=== PATIENT | female | born 1960 | race Caucasian/White ===

== ENCOUNTER → 2021-07-29 | Outpatient (CLI) | payer OTHER ==
[~2021-07-29] MED LIST: ATORVASTATIN CA10 MG PO; BAYER CHEWABLE81 MG PO; BENADRYL ALLERG25 MG PO; CALCIUM500 M1 PO; CITALOPRAM HBR40 MG PO; CLARITIN 10MG T10 MG PO; CLARITIN10 MG PO; CLONAZEPAM1 MG PO; COREG 12.5MG12.5 MG PO; CYCLOBENZAPRINE10 MG PO; DEMADEX 20 MG T20 MG PO; GABAPENTIN800 MG PO; HAIR SKIN NAIL1 EACH PO; HYDROCODON-ACE1 EAC2 PO; LEVOTHYROXINE125 MCG PO; LISINOPRIL30 MG PO; PREDNISONE50 MG PO; PROTONIX 40 MG40 M1 PO; RANOLAZINE ER500 MG PO; VENTOLIN HFA 66.7 GM INH; VITAMIN C 500500 M1 PO; VITAMIN D21250 MCG PO; VITAMIN D310 MC1 PO; ZYLOPRIM 300 M300 MG PO
[2021-07-29 13:15] LABS: HEMOGLOBIN 12.3 gm/dl (12.3-15.3); RED BLOOD COUNT 3.9 M/UL (4.00-5.10); WHITE BLOOD COUNT 6.7 K/UL (4.5-11.0)
[2021-07-29 13:25] LABS: BUN/CREATININE RATIO 19 (0-10)
== END ==
LOC: OPSV2 11:00 → EDSTATUS 11:00 → OPSV2 11:42
PROVIDERS: Orthopaedic Surgery
DX: Z01.818 Encounter for other preprocedural examination (principal); M17.12 Unilateral primary osteoarthritis, left knee; Z91.041 Radiographic dye allergy status; Z88.2 Allergy status to sulfonamides; R94.31 Abnormal electrocardiogram [ECG] [EKG]
CPT/HCPCS: 80048; 85025; 93005

== ENCOUNTER 2021-08-12 09:24 | Day surgery (SDC) | payer OTHER ==
[~2021-08-12] VITALS: Ht 170.2 cm; Wt 123.8 kg
[2021-08-13 04:44] LABS: RED BLOOD COUNT 3.45 M/UL (4.00-5.10); WHITE BLOOD COUNT 10.1 K/UL (4.5-11.0)
[2021-08-13] MEDS ORDERED: PERCOCET 5/325 T1 EA PO (10:12)
[2021-08-13] MEDS ORDERED: ELIQUIS 2.5 MG2.5 MG GT (10:12)
== END 2021-08-13 13:40 | disposition home or self-care (01) ==
LOC: OR 09:24 → EDSTATUS 13:45 → OR 13:45 → M/S 16:22 → OR 08-13 13:40
PROVIDERS: Internal Medicine; Orthopaedic Surgery
DX: M17.0 Bilateral primary osteoarthritis of knee (principal); M79.4 Hypertrophy of (infrapatellar) fat pad; I13.0 Hypertensive heart and chronic kidney disease with heart failure and stage 1 through stage 4 chronic kidney disease, or unspecified chronic kidney disease; N18.9 Chronic kidney disease, unspecified; I50.32 Chronic diastolic (congestive) heart failure; E03.9 Hypothyroidism, unspecified; M10.9 Gout, unspecified; I25.10 Atherosclerotic heart disease of native coronary artery without angina pectoris; E66.9 Obesity, unspecified; K21.9 Gastro-esophageal reflux disease without esophagitis; Z90.49 Acquired absence of other specified parts of digestive tract; Z98.51 Tubal ligation status; Z88.2 Allergy status to sulfonamides; Z91.041 Radiographic dye allergy status; Z79.82 Long term (current) use of aspirin
CPT/HCPCS: 36415; 73560; 76000; 80048; 85027; 86850; 86900; 86901; 97116-GP-CQ; 97161; 97166; 97535; C1776; J0690; J1100; J1885; J2001; J2250; J2370; J2405; J2704; J2795; J3010; J7120